=== PATIENT | female | born 1995 | race Caucasian/White ===

== ENCOUNTER → 2017-01-04 | Outpatient (CLI) | payer OTHER ==
[2017-01-04 16:39] LABS: BASO % 0.4 %; BASO ABS # 0.03 K/uL (0-0.2); COMPLETE YES; EOS % 0.3 %; HEMATOCRIT 37.2 % (37-47); IG% 0.1 %; LYMPH % 38.7 %; LYMPH ABS # 2.67 K/uL (1.2-3.4); MEAN CORPUSCULAR HEMOGLOBIN 31.1 pg (25-34); MEAN CORPUSCULAR HGB CONC 34.1 g/dl (32-36); MEAN PLATELET VOLUME 9.7 fL (7.4-10.4); MONO % 8.1 %; NEUT % 52.4 %; PLATELET COUNT 207 K/uL (130-400); RED BLOOD COUNT 4.09 M/uL (4.2-5.4)
== END | disposition home or self-care (01) ==
LOC: C.LAB 15:21
PROVIDERS: ATTEND Family Medicine
DX: N92.0 Excessive and frequent menstruation with regular cycle (principal); Z86.2 Personal history of diseases of the blood and blood-forming organs and certain disorders involving the immune mechanism

== ENCOUNTER → 2017-05-11 | Outpatient (CLI) | payer OTHER ==
--- NOTE | 2017-05-11 10:34 | DIAGNOSTIC IMAGING REPORT ---
CERVICAL SPINE 5 VIEWS HISTORY: NECK PAIN COMPARISON: None. FINDINGS: The cervical spine is visualized from C1 through the superior endplate of T1. There is no fracture. No subluxation. Disc spaces are preserved. Prevertebral soft tissues and the atlantodens interval are intact. Slight reversal of the normal lordotic curvature. IMPRESSION: Slight reversal of the normal lordotic curvature. Otherwise, normal cervical spine. Electronically signed by: Puma Mendez M.D. 05/11/2017 10:33 AM Dictated Date/Time: 05/11/2017 10:29 AM
== END | disposition home or self-care (01) ==
LOC: C.RDSM 10:10
PROVIDERS: ATTEND Family Medicine
DX: M54.2 Cervicalgia (principal)